=== PATIENT | male | born 1940 | race Caucasian/White ===

== ENCOUNTER 2017-08-10 06:32 | Day surgery (SDC) | payer MEDICARE ==
[~2017-08-10] VITALS: Ht 175.3 cm; Wt 82.0 kg
[2017-08-10] MEDS ORDERED: IOHEXOL 350 MG/ML 50 ML BTL (for Cath Lab) OTHER ONE (06:33)
[2017-08-10] MEDS ORDERED: IOHEXOL 350 MG/ML 100 ML BTL (for Cath Lab) OTHER ONE (06:33)
[2017-08-10] MEDS ORDERED: SODIUM CHLOR 0.9% 1000 ML INJ 400 ML IV ONE (07:00)
[2017-08-10] MEDS ORDERED: SODIUM CHLORIDE 0.9% FLUSH 10 ML FLUSH IV FLUSH PRN ×2 (07:00)
[2017-08-10] MEDS ORDERED: ATEN25TA PO (07:18)
[2017-08-10] MEDS ORDERED: TRAD5TAB PO (07:18)
[2017-08-10] MEDS ORDERED: LISI10TA3 PO (07:18)
[2017-08-10] MEDS ORDERED: TRAM50TA PO (07:18)
[2017-08-10] MEDS ORDERED: TERA10CA3 PO (07:18)
[2017-08-10] MEDS ORDERED: SIMV20TA PO (07:18)
[2017-08-10] MEDS ORDERED: ASPI-516 CHEW (07:18)
[2017-08-10] MEDS ORDERED: METF500T PO (07:18)
[2017-08-10] MEDS ORDERED: ENAL10TA PO (07:18)
[2017-08-10] MEDS ORDERED: MIDAZOLAM HCL 2 MG/2 ML VIAL ONE ×2 (08:47→09:12)
[2017-08-10] MEDS ORDERED: HEPARIN-NS/PF FLUSH BAG 1,000 ML IV FLUSH ONE (08:47)
[2017-08-10] MEDS ORDERED: NITROGLYCERIN INJ 5 ML ONE (08:47)
[2017-08-10] MEDS ORDERED: HEPARIN SODIUM - IV 10,000 UNITS/10 ML VIAL ONE (08:47)
[2017-08-10] MEDS ORDERED: MIDAZOLAM HCL 2 MG/2 ML VIAL IV PUSH ONE ×3 (09:09→16:45)
[2017-08-10] MEDS ORDERED: ADENOSINE IV SOLN 3 MG/ML 2 ML VIAL ONE (09:57)
[2017-08-10] MEDS ORDERED: NITROGLYCERIN ONE (10:31)
[2017-08-10] MEDS ORDERED: hydrALAZINE HCL 20 MG/ML VIAL ONE (10:31)
[2017-08-10] MEDS: hydrALAZINE HCL 20 MG/ML VIAL IV PUSH PRN ×2 (10:37→13:58)
[2017-08-10] MEDS ORDERED: SODIUM CHLOR 0.9% 1000 ML INJ 1,000 ML IV SCH (10:44)
[2017-08-10] MEDS ORDERED: MISC INFORMATION XX ONE (10:45)
[2017-08-10] MEDS ORDERED: oxyCODONE/ACETAMINOPHEN 10 MG/325 MG TAB PO PRN (10:45)
[2017-08-10] MEDS ORDERED: MORPHINE SULFATE 4 MG/ML INJ IV PUSH PRN (10:45)
[2017-08-10] MEDS ORDERED: ATROPINE SULFATE 1 MG/ML VIAL IV PUSH PRN (10:45)
[2017-08-10] MEDS ORDERED: oxyCODONE/ACETAMINOPHEN 5 MG/325 MG TAB PO PRN (10:45)
[2017-08-10] MEDS ORDERED: PLAV75TA29 PO (10:47)
--- NOTE | 2017-08-10 10:52 | CATHPROC ---
[facility] HIS Report Study Information Study Number Admission Scheduled Start Study Start [id number] Aug 10 2017 6:32AM 08/10/2017 Aug 10 2017 8:36AM [place] Service Cath Endovascular Study Admit Source Facility Department Other [facility] - Business Transformation Consultant Physician and Clinical Staff Initial David Krishna Anesthesiologist Physician Lois Up,RN Recorder Misbah Trinidad,RT(R) Scrub Gennaro Bell,RT(R) Procedures Performed Procedure Location (Site) Vessel Name Angiogram LV Abd Aorta (A3) Aorta FOOD SAFETY OFFICER SFA (right) Femoral Art Wire insertion Fem Art (left) Femoral Art Equipment Time Group Director Description Size Mfg Part Number Used/Scraped DBP- CARDIOVASCULAR CATHETER, STEALTH SOLID 09:54 [id number] Used sourceasy INC. 2.0MM *[id number] CARDIOVASCULAR [id number] 09:51 WIRE, FIRM (VIPER) 335 Used SYSTEMS INC. *[id number] WIRE, GUIDE APPROACH HYDRO [id number] 09:37 COOK/MARJAN 300CM Used ST *[id number] WIRE, GUIDE APPROACH HYDRO [id number] 09:43 COOK/MARJAN 300CM Used ST *[id number] 09:01 CORDIS/ MARJAN RIM SUPER TORQUE CATHETER FR 5 Used *[id number] *[id number] ENDOVASCULAR CATHETER, FR4 TRAILBLAZER [id number] 09:49 150CM Used COMPANY .014 *[id number] BALLOON, ADMIRAL IN.PACT 6 X [id number] 10:13 [employer] 130CM Used 150 130CM *[id number] BALLOON, ADMIRAL IN.PACT 7 X 10:29 [employer] 130CM [id number] Used 60 130CM BALLOON, PACIFIC PLUS 5 X 120 [id number] 10:17 [employer] 130CM Used 130CM *[id number] CATHETER, FR5 TRAILBLAZER [id number] 09:26 [employer] 135CM Used .035 *[id number] 09:01 MALLINCKRODT SYRINGE, ANGIOMAT 150ML 150ML [id number] Used [id number] 09:01 [employer] PACK, CCL CUSTOM * Used *[id number] 09:01 MEDLINE PACER PEN, SKIN DUAL W/ RULER * Used *[id number] 10:31 [employer] MEDICAL SHEATH, FR6.5 PRELUDE 11CM FR 6.5 038ACT Used *[id number] 09:01 [employer] MEDICAL WIRE, EXCHANGE 260CM 3MMJ 260CM Used *[id number] 09:01 NAMIC MANIFOLD, 4 PORT * Used *[id number] [id number] 09:01 NAMIC TUBING, HIGH PRESSURE 48" 48" Used *[id number] 09:01 NYCOMED OMNIPAQUE, 300 MG, 150ML 150ML [id number] Used [id number] 09:01 [facility] BLANKET,WARM AIR CCL * Used *[id number] 09:01 TERUMO MEDICAL SHEATH, FR5 TERUMO (10CM) FR 5 Used *[id number] SHEATH, FR6 PINNACLE [id number] 09:26 TERUMO MEDICAL/MARJAN FR 6 Used DESTINATION 45CM *[id number] WIRE, ANGLE GLIDE STIFF .035 [id number] 09:01 TERUMO MEDICAL/MARJAN 260CM Used 260CM *[id number] Equipment Model, Serial, Lot Number and Expiration Data Description Model Number Serial Number Lot Number Expiration Date BALLOON, ADMIRAL IN.PACT 6 X [id number] 03-05-2019 150 130CM CATHETER, STEALTH SOLID 2.0MM [id number] 04-24-2019 SHEATH, FR6.5 PRELUDE 11CM [id number] 12-23-2019 WIRE, FIRM (VIPER) 335 [id number] 04-24-2019 WIRE, GUIDE APPROACH HYDRO [id number] 06-14-2019 ST WIRE, GUIDE APPROACH HYDRO [id number] 08-01-2019 ST History: Allergies Allergy Reaction No Known Allergies Labs Hgb (g/dl) Hct (%) RBC (MIL/MM3) WBC (l/cumm) Platelets (thousands) 11.60-17.00 35.00-51.00 4.00-5.90 4.00-11.00 150.00-450.00 12.6 38.1 3.7 6.6 190 Glucose (mg/dl) BUN (mg/dl) Creatinine (mg/dl) BUN:Creatinine (1:x) 74.00-106.00 7.00-18.00 0.50-1.30 10.00-20.00 129 31 1.4 22.1 Na (meq/l) K (meq/l) Cl (meq/l) 136.00-145.00 3.50-5.10 98.00-107.00 145 5.1 105 PT (sec) INR (PTT:PT) 9.80-11.60 0.90-1.10 10.4 1 CPK-MB (ng/ML) 0.50-3.60 Not Drawn Medication Medication Total Dose (Bolus/Oral) Medication Total Dosage/Unit 1% XYLOCAINE 20 mL ADENOSINE 360 mcg FENTANYL 100 mcg HEPARIN 8000 units HYDRALAZINE 20 mg NTG (IC) 1400 mcg PLAVIX 600 mg VERSED 3 mg Medications (Bolus/Oral) Medication Time Given Dosage/Unit Administered By Reason VERSED 08/10/2017 9:09:45 AM 2 mg Adamy, Lois 2 mg VERSED given in lab by Lois Up RN via Peripheral IV. Ordered by David Andujar. FENTANYL 08/10/2017 9:10:31 AM 50 mcg Cuongy, Lois 50 mcg FENTANYL given in lab by Lois Up RN via Peripheral IV. Ordered by David Andujar. VERSED 08/10/2017 9:15:48 AM 1 mg Adamy, Lois 1 mg VERSED given in lab by Lois Up RN via Peripheral IV. Ordered by David Andujar. FENTANYL 08/10/2017 9:16:10 AM 25 mcg Cuongy, Lois 25 mcg FENTANYL given in lab by Lois Up RN via Peripheral IV. Ordered by David Andujar. 1% XYLOCAINE 08/10/2017 9:18:05 AM 20 mL David Andujar 20 mL 1% XYLOCAINE given in lab by David Andujar via Subcutaneous. Ordered by David Andujar. HEPARIN 08/10/2017 9:33:45 AM 5000 units Lois Up 5000 units HEPARIN given in lab by Lois Up RN via Peripheral IV. Ordered by David Andujar. HEPARIN 08/10/2017 9:56:06 AM 3000 units Lois Up 3000 units HEPARIN given in lab by Lois Up RN via Peripheral IV. Ordered by David Andujar. NTG (IC) 08/10/2017 10:00:12 AM 200 mcg David Andujar 200 mcg NTG (IC) given in lab by David Andujar via Intra-arterial. Ordered by David Andujar. ADENOSINE 08/10/2017 10:00:50 AM 180 mcg David Andujar 180 mcg ADENOSINE given in lab by David Andujar via Intra-arterial. Ordered by David Andujar. NTG (IC) 08/10/2017 10:03:34 AM 300 mcg David Andujar 300 mcg NTG (IC) given in lab by David Andujar via Intra-arterial. Ordered by David Andujar. NTG (IC) 08/10/2017 10:06:49 AM 300 mcg David Andujar 300 mcg NTG (IC) given in lab by David Andujar via Intra-arterial. Ordered by David Andujar. ADENOSINE 08/10/2017 10:07:01 AM 180 mcg David Andujar 180 mcg ADENOSINE given in lab by David Andujar via Intra-coronary. Ordered by David Andujar. NTG (IC) 08/10/2017 10:10:02 AM 300 mcg David Andujar 300 mcg NTG (IC) given in lab by David Andujar via Intra-arterial. Ordered by David Andujar. FENTANYL 08/10/2017 10:15:40 AM 25 mcg Lois Up 25 mcg FENTANYL given in lab by Lois Up, LUZMARIA via Peripheral IV. Ordered by David Andujar. NTG (IC) 08/10/2017 10:27:37 AM 300 mcg David Andujar 300 mcg NTG (IC) given in lab by David Andujar via Intra-arterial. Ordered by David Andujar. PLAVIX 08/10/2017 10:45:42 AM 600 mg Lois Up 600 mg PLAVIX given in lab by Lois Up, LUZMARIA via Oral. Ordered by David Andujar. HYDRALAZINE 08/10/2017 10:50:23 AM 20 mg Lois Up 20 mg HYDRALAZINE given in lab by Lois Up, LUZMARIA via Peripheral IV. Ordered by David Andujar. Medication (Drip) Medication Time Given Dosage/Unit Concentration/Unit Diluent (ml) Solution IV Solutions 08/10/2017 8:58:59 AM 0 mL (IV) 1000 NaCl .9 Patient arrived on IV Solutions given by David Andujar in Left Wrist via Peripheral IV. Pump/Drip Fl ow = 200 ml/hr using NaCl .9. Ordered by David Andujar. Initial Case Assessment Cardiovascular HR Rhythm NIBP 65 sr 211/100 Edema Present Skin color Skin None Normal Warm Dry Circulatory - Right Pulses Dorsalis Pedis Posterior Tibial Femoral d d 2 Scale (0,1,2,3,4,d) Circulatory - Left Pulses Dorsalis Pedis Posterior Tibial Femoral 1 d 2 Scale (0,1,2,3,4,d) Neurological State Oriented to time-place- Alert Moves all extremities person Respiration - General Respiration Rate SpO2 (%) O2 (lpm) (B/min) 18 99 0 Chronological Log Time Study Chronological Log 8:35:43 Patient arrived via Bed. 8:35:45 Patient Name, D.O.B, / Armband Verified By R.N. 8:35:46 Consent signed by the physician and the patient and verified by the Business Transformation Consultant staff. 8:35:48 Pre-op and post- op instructions given; patient acknowledges understanding of instructions. Vitals capture started with the following parameters, Patient=Adult, Interval=5 min, Initial Pr osrcvl=791 mmHg, 8:48:00 Deflation Rate=5 mmHg, Cuff placed on Right Ankle 8:49:11 HR=54 bpm, TJYX=749/93 mmhg, SpO2=97.0 %, Resp=10 B/min, El=2 8:52:01 Patient has been NPO for More than 6Hrs. 8:52:31 Reference ECG taken 8:53:47 HR=65 bpm, KPYF=504/97 mmhg, SpO2=97.0 %, Resp=13 B/min, El=2 8:56:59 A # 20 IV was noted in the Wrist (left). Grade = 0 8:58:08 A # 20 IV was noted in the Wrist (left). Grade = 0 8:58:48 HR=61 bpm, ULJO=359/100 mmhg, SpO2=99.0 %, Resp=22 B/min, El=2 Patient arrived on IV Solutions given by David Andujar in Left Wrist via Peripheral IV. Pump/D rip Flow = 200 ml/hr 8:58:59 using NaCl .9. Ordered by David Andujar. 8:59:51 History and physical on the chart or being dictated. Assessment: Initial Case, HR=65 BPM, Rhythm=sr, KYPB=629/100 mmhg, Edema=None, Color=Normal, Ski n = Warm, Dry Right Pulses: Tong Ped=d, Post Tib=d, Femoral=2 8:59:53 Left Pulses: Tong Ped=1, Post Tib=d, Femoral=2 Neurological: State=Alert, Ox3, GREEN Respiration: Resp=18 B/min, SpO2=99 %, O2=0 lpm 9:00:50 Bilateral groins prepped with 2% chlorhexidine, and draped after a 3 minute waiting time. 9:01:06 Pressure channel 1 zeroed. 9:03:51 HR=49 bpm, AXNE=411/95 mmhg, SpO2=99.0 %, Resp=7 B/min, El=2 9:08:52 HR=64 bpm, ZFSY=312/102 mmhg, SpO2=99.0 %, Resp=13 B/min, El=2 9:09:45 2 mg VERSED given in lab by Lois Up, LUZMARIA via Peripheral IV. Ordered by David Andujar . 9:10:31 50 mcg FENTANYL given in lab by Lois Up RN via Peripheral IV. Ordered by Ciro Andujar. 9:12:25 MD arrived. 9:13:54 HR=55 bpm, LPIQ=094/77 mmhg, SpO2=98.0 %, Resp=12 B/min, El=2 9:15:48 1 mg VERSED given in lab by Lois Up, LUZMARIA via Peripheral IV. Ordered by David Andujar . 9:16:10 25 mcg FENTANYL given in lab by Lois Up, LUZMARIA via Peripheral IV. Ordered by Ciro Andujar Time Out. Correct patient, correct procedure, correct physician, power injector not loaded with contrast with surgical 9:16:41 team present. Time Out Concurred by MD and individual staff in procedure. Loaded by stanley Bruno by Gennaro Bell. 9:18:00 Presedation re-assessment performed by Business Transformation Consultant RN. 9:18:02 Case Start 9:18:05 20 mL 1% XYLOCAINE given in lab by David Andujar via Subcutaneous. Ordered by Álvaro Andujar 9:18:51 HR=57 bpm, IROQ=968/75 mmhg, SpO2=98.0 %, Resp=7 B/min, El=2 9:19:02 Access site was Left Femoral Artery. left art 9:19:30 A SHEATH, FR5 TERUMO (10CM) FR 5 was advanced into the Fem Art (left) using the Percutaneous technique. A PIGTAIL ANG. INFINITI CATHETER FR 5 was advanced over a wire. OMNIPAQUE, 300 MG, 150ML 150ML w as used 9:20:26 for injections. 9:21:38 The Abd Aorta (A3) was injected at 12 cc/sec for a total of 24. OMNIPAQUE, 300 MG, 150ML 150 ML used. 9:22:09 A WIRE, EXCHANGE 260CM 3MMJ 260CM was inserted via Fem Art (left). After removing the current catheter a RIM SUPER TORQUE CATHETER FR 5 was advanced over a WIRE, E XCHANGE 9:22:30 260CM 3MMJ 260CM. 9:22:45 Wire removed 9:23:02 Manual injections down right leg through 5 cymraes rim catheter. 9:23:50 HR=60 bpm, UZVX=676/68 mmhg, SpO2=97.0 %, Resp=11 B/min, El=2 9:28:49 A WIRE, ANGLE GLIDE STIFF .035 260CM 260CM was inserted via Fem Art (left). 9:29:11 HR=60 bpm, EAIK=634/70 mmhg, SpO2=97.0 %, Resp=11 B/min, El=2 9:31:44 Catheter was removed A SHEATH, FR6 PINNACLE DESTINATION 45CM FR 6 was exchanged in the Fem Art (left). This was osorio yoder in order 9:31:46 to accomodate a larger catheter. A CATHETER, FR5 TRAILBLAZER .035 135CM was advanced over a wire. OMNIPAQUE, 300 MG, 150ML 150ML was 9:32:36 used for injections. 9:33:41 HR=56 bpm, HCOM=206/70 mmhg, SpO2=98.0 %, Resp=11 B/min, El=2 9:33:45 5000 units HEPARIN given in lab by Lois Up, RN via Peripheral IV. Ordered by David Andujar. 9:38:40 HR=56 bpm, OAFI=329/63 mmhg, SpO2=98.0 %, Resp=12 B/min, El=2 9:40:05 The previous wire was exchanged for a WIRE, GUIDE APPROACH HYDRO ST 300CM. 9:43:08 The previous wire was exchanged for a WIRE, GUIDE APPROACH HYDRO ST 300CM. 9:44:20 HR=55 bpm, SRKD=015/66 mmhg, SpO2=98.0 %, Resp=11 B/min, El=2 9:48:45 HR=54 bpm, ENQY=531/74 mmhg, SpO2=98.0 %, Resp=12 B/min, El=2 A CATHETER, FR4 TRAILBLAZER .014 150CM was advanced over a wire. OMNIPAQUE, 300 MG, 150ML 150ML was 9:49:59 used for injections. 9:51:43 Wire removed 9:51:51 Activated Clotting Time Drawn 9:52:04 A WIRE, FIRM (VIPER) 335 was inserted via Fem Art (left). 9:53:01 Catheter was removed 9:53:46 HR=52 bpm, QCWG=418/77 mmhg, SpO2=98.0 %, Resp=11 B/min, El=2 9:55:49 ACT (Normal Range 90-180) = 203 9:56:06 3000 units HEPARIN given in lab by Lois Up RN via Peripheral IV. Ordered by David Andujar. 9:57:18 An CATHETER, STEALTH SOLID 2.0MM catheter was inserted into the Fem Art (right). 9:57:57 2.0 Solid CSI catheter in use in right fem/SFA 9:58:47 HR=57 bpm, CZDH=016/78 mmhg, SpO2=98.0 %, Resp=15 B/min, El=2 10:00:12 200 mcg NTG (IC) given in lab by David Andujar via Intra-arterial. Ordered by Nery Andujar 10:00:50 180 mcg ADENOSINE given in lab by Daivd Andujar via Intra-arterial. Ordered by Rick Andujar. 10:03:34 300 mcg NTG (IC) given in lab by David Andujar via Intra-arterial. Ordered by Nery Andujar 10:03:50 HR=58 bpm, KNMJ=006/78 mmhg, SpO2=98.0 %, Resp=12 B/min, El=2 10:06:49 300 mcg NTG (IC) given in lab by David Andujar via Intra-arterial. Ordered by Nery Andujar 10:07:01 180 mcg ADENOSINE given in lab by David Andujar via Intra-coronary. Ordered by Rick Andujar 10:08:49 HR=54 bpm, JFYV=311/81 mmhg, SpO2=97.0 %, Resp=10 B/min, El=2 10:09:15 CSI Catheter was removed w/o difficulty 10:09:54 Activated Clotting Time Drawn 10:10:02 300 mcg NTG (IC) given in lab by David Andujar via Intra-arterial. Ordered by Nery Andujar 10:13:48 HR=55 bpm, ZZGT=688/86 mmhg, SpO2=98.0 %, Resp=13 B/min, El=2 10:15:05 ACT (Normal Range 90-180) = 269 10:15:40 25 mcg FENTANYL given in lab by Lois Up, LUZMARIA via Peripheral IV. Ordered by St micky Andujar. 10:15:48 A BALLOON, PACIFIC PLUS 5 X 120 130CM 130CM was inserted over WIRE FIRM (VIPER) 335 via th e SFA (right). 10:16:44 In the SFA (right) a BALLOON, PACIFIC PLUS 5 X 120 130CM 130CM was inflated to 6 atms for 2 0 seconds. 10:17:33 In the SFA (right) a BALLOON, PACIFIC PLUS 5 X 120 130CM 130CM was inflated to 6 atms for 2 0 seconds. 10:18:49 HR=61 bpm, YWBB=516/80 mmhg, SpO2=96.0 %, Resp=14 B/min, El=2 10:18:56 Balloon Removed. A CATHETER, FR5 TRAILBLAZER .035 135CM was advanced over a wire. OMNIPAQUE, 300 MG, 150ML 150ML was 10:19:19 used for injections. 10:19:29 The previous wire was exchanged for a WIRE, ANGLE GLIDE STIFF .035 260CM 260CM. 10:20:44 Catheter was removed w/o difficulty A BALLOON, ADMIRAL IN.PACT 6 X 150 130CM 130CM was inserted over WIRE, EXCHANGE 260CM 3MMJ 260C M via 10:20:50 the SFA (right). 10:21:09 In the SFA (right) a BALLOON, ADMIRAL IN.PACT 6 X 150 130CM 130CM was inflated to 8 atms fo r 180 seconds. 10:24:29 HR=57 bpm, YECH=586/96 mmhg, SpO2=99.0 %, Resp=12 B/min, El=2 10:27:34 Balloon Removed. 10:27:37 300 mcg NTG (IC) given in lab by David Andujar via Intra-arterial. Ordered by Nery Andujar en. A BALLOON, ADMIRAL IN.PACT 7 X 60 130CM 130CM was inserted over WIRE, EXCHANGE 260CM 3MMJ 260C M via the 10:28:02 SFA (right). 10:28:53 HR=57 bpm, TILW=771/87 mmhg, SpO2=98.0 %, Resp=12 B/min, El=2 10:28:58 In the SFA (right) a BALLOON, ADMIRAL IN.PACT 7 X 60 130CM 130CM was inflated to 8 atms fo r 180 seconds. 10:32:56 In the SFA (right) a BALLOON, ADMIRAL IN.PACT 7 X 60 130CM 130CM was inflated to 8 atms fo r 20 seconds. 10:33:18 In the SFA (right) a BALLOON, ADMIRAL IN.PACT 7 X 60 130CM 130CM was inflated to 8 atms fo r 20 seconds. 10:34:35 HR=56 bpm, VTEG=076/86 mmhg, SpO2=98.0 %, Resp=12 B/min, El=2 10:39:30 HR=53 bpm, ZPCP=321/80 mmhg, SpO2=98.0 %, Resp=12 B/min, El=2 10:40:24 Balloon Removed. 10:40:29 Wire removed A SHEATH, FR6.5 PRELUDE 11CM FR 6.5 was exchanged in the Fem Art (left). This was necessary in order to 10:40:42 accomodate a larger catheter. 10:43:40 In the Fem Art (left) the SHEATH, FR6.5 PRELUDE 11CM FR 6.[address] by David Andujar. 10:43:49 Case End 10:43:50 No case complications noted. 10:43:52 HR=56 bpm, VQJH=529/66 mmhg, SpO2=99.0 %, Resp=12 B/min, El=2 10:43:52 Sterile dressing applied to site 10:43:54 Cine recording checked. 10:44:08 Contrast Scanned 10:45:42 600 mg PLAVIX given in lab by Lois Up, RN via Oral. Ordered by David Andujar. 10:48:45 LLKA=455/66 mmhg, SpO2=99.0 %, El=2 10:50:23 20 mg HYDRALAZINE given in lab by Lois Up, RN via Peripheral IV. Ordered by David Anduajr. 10:51:13 Patient moved to stretcher 10:51:48 Vitals capture stopped. End Study - Contrast Media Used In Study Contrast Total Opened (mL) Total Used (mL) Total Wasted (mL) Omnipaque 125 125 0 End Study - Maximum Contrast Load Max Contrast Load (mL) 292.9 End Study - Radiation Exposure Fluoro Time (minutes) 24.5 End Study - Patient Disposition Complications Transferred To Telemetry Bed
[2017-08-10] MEDS ORDERED: cloNIDine HCL 0.1 MG TAB PO PRN (11:00)
--- NOTE | 2017-08-10 11:38 | MA ---
cc: TOMAS HALE DATE 08/10/2017 PROCEDURE PERFORMED 1. Descending aortography. 2. Right lower extremity peripheral angiography, first, second, third order visualization and interpretation. 3. Orbital rotational atherectomy and balloon angioplasty with drug-coated balloon of the right common femoral and right superficial femoral arteries. METHOD The risks, benefits and alternatives were discussed with the patient. The patient understood and consented to the procedure. The patient was brought into the catheterization lab and was placed on the catheterization table. The left groin was prepped and draped in sterile fashion. The left groin was anesthetized with 2% lidocaine. The left common femoral artery was cannulated and a 5 Czech, 11 cm sheath was placed without difficulty. DESCENDING AORTOGRAPHY Descending aortography is performed in anterior-posterior views using a 24 cc contrast injection with good opacification. The descending aortography reveals mild to moderate infrarenal descending aortic atherosclerosis. The right renal artery has 50-60% stenosis. The left renal artery has 30-40% stenosis. RIGHT LOWER EXTREMITY PERIPHERAL ANGIOGRAPHY The right common iliac artery has moderate eccentric calcific disease but estimated severity is only 30-40%. The right external and internal iliac arteries have mild luminal irregularities. The right common femoral artery has a low bifurcation and is heavily calcified with a 95% stenosis at the ostium of the superficial femoral artery involving the bifurcation and distal common femoral artery. The right superficial femoral artery in the midsegment has an 80% eccentric moderately calcified stenosis. The popliteal artery has mild luminal irregularities. There is two-vessel runoff below the knee in the right lower extremity, the peroneal vessel and the anterior tibial vessel. The peroneal vessel has moderate disease present. The anterior tibial appears to be widely patent to the level of the ankle and the foot. The posterior tibial appears to be occluded distally. PERCUTANEOUS INTERVENTION A 6 Czech, 45 cm [employer] Gurley sheath was advanced up-and-over the arch. A 0.[address] wire was then carefully navigated across the stenosis in the common femoral and superficial femoral arteries down into the peroneal artery. A 0.014 inch, 150 cm Trailblazer catheter is advanced behind it distally. Digital subtraction angiography confirmed intraluminal placement. Heparin was administered throughout the entire procedure to maintain appropriate anticoagulation. A 335 cm, 0.014 inch Viper wire is navigated down the distal peroneal vessel. The Trailblazer catheter is removed. A 2.0 mm CSI atherectomy catheter is then prepped. Orbital rotational atherectomy is performed on four sequential passes through the common femoral artery and two sequential passes through the mid superficial femoral artery ranging from 60,000 to 90,000 revolutions per minute. Both lesions were predilated with a 5.0 x 120 mm Medtronic balloon. Repeat angiography still showed residual stenosis. A 6.0 x 150 mm Medtronic drug-coated balloon is then deployed in the right superficial femoral artery and a 7.0 x 60 mm Medtronic drug-coated balloon deployed at the distal common femoral artery extending into the proximal superficial femoral artery. Repeat angiography showed some mild to moderate disease present but KYM-III flow through the common femoral and superficial femoral arteries. The wires were removed. The sheath was removed and replaced with a 6 Czech short sheath to be removed with manual hemostasis. CONCLUSIONS 1. Severe distal right common femoral and superficial femoral artery heavily calcified stenosis. 2. Mild to moderate infrarenal descending aortic atherosclerosis. 3. Moderate right renal artery stenosis. 4. Successful orbital rotational atherectomy and balloon angioplasty with drug-coated balloon of the right common femoral and superficial femoral arteries. PLAN Will monitor the patient closely for any post-procedural complications. Hopefully this will translate well with symptomatic improvement. Wanted to avoid potentially stenting across the bifurcation of the profunda. At this point if he has any recurrent symptoms or stenosis it may be best for consideration of an endarterectomy and/or bypass on the right side. If he does well we can potentially stage the left lower extremity. We may also consider taking a closer look at the right renal artery given his profound hypertension. Will initiate Plavix therapy. Anticipate discharge later today. MD MAYNOR Milner/REYNALDO /10:51 AM /11:08 AM
[2017-08-10] MEDS ORDERED: CLOPIDOGREL 300 MG TAB PO ONE (12:30)
[2017-08-10] MEDS ORDERED: HEPARIN SODIUM - IV 10,000 UNITS/10 ML VIAL IV PUSH ONE ×2 (16:45)
[2017-08-10] MEDS ORDERED: NITROGLYCERIN 1000 MCG/5 ML VIAL OTHER ONE ×8 (16:45→17:00)
[2017-08-10] MEDS ORDERED: hydrALAZINE HCL 20 MG/ML VIAL IV PUSH ONE (17:00)
[2017-08-10] MEDS ORDERED: DOPAMINE ONE (17:51)
--- NOTE | 2017-08-10 22:26 | EKG ---
Date Performed: 08/10/2017 Time Performed: 11:50:36 PTAGE: 77 years EKG: Sinus bradycardia. Left axis deviation Inferior infarct - age undetermined Possible septal infarct - age undetermined Lateral T wave changes Low QRS voltages in limb leads Abnormal ECG NO PREVIOUS TRACING DOCTOR: Parker Rivera Interpretating Date/Time 08/10/2017 22:25:32
[2017-08-11] MEDS ORDERED: CLOPIDOGREL 75 MG TAB PO SCH (09:00)
== END 2017-08-10 20:02 | disposition home or self-care (01) ==
LOC: HDOC 06:32 → HDIC 06:32 → HDOC 20:02
PROVIDERS: ATTEND Internal Medicine
DX: I70.201 Unspecified atherosclerosis of native arteries of extremities, right leg (principal); I70.0 Atherosclerosis of aorta; I70.1 Atherosclerosis of renal artery; I65.29 Occlusion and stenosis of unspecified carotid artery; E11.42 Type 2 diabetes mellitus with diabetic polyneuropathy; E78.5 Hyperlipidemia, unspecified; I10 Essential (primary) hypertension; F17.200 Nicotine dependence, unspecified, uncomplicated
CPT/HCPCS: 37225; 75625; 75710; 85002; 86850; 86900; 86901; 93005; 99152; 99153; C1714; C1725; C1751; C1769; C1893; C2623; J0153; J0360; J1644; J2250; J2270; J3010; J7030; 85347; J1265; Q9967